=== PATIENT | female | born 1980 | race Caucasian/White ===

== ENCOUNTER 2016-12-10 18:08 | Emergency (ER) | payer OTHER ==
[~2016-12-10] VITALS: Ht 160 cm; Wt 117.5 kg
[~2016-12-10 18:08] MED LIST: AEROECLIPSE1 EACH MC; ATARAX,VISTARIL25 MG PO; ATARAX,VISTARIL50 MG PO; BUSPIRONE HCL15 MG PO; CEFDINIR300 MG PO; DESYREL100 MG PO; DOXEPIN HCL100 MG PO; EFFEXOR25 MG PO; LEXAPRO20 MG PO; LIDODERM 5% P1 PATCH TD; MYCOLOG OINTMEN15 GM TD; NICOTINE PATCH1 EAC1 TD; NOHOMEMEDS; PEN-VEE K,VEET500 MG PO; PERCOCET 5/31 TABLET PO; PREDNISONE20 MG PO; PREDNISONE50 MG PO; PROVENTIL,2.5 MG/3 M IH; SLEEPING PILL PO; SYMBICORT60 INHALAT IH; TYLENOL WITH C1 EACH PO; VENTOLIN HFA18 GM IH; VIBRAMYCIN100 MG PO; ZANTAC150 MG PO; ZOFRAN4 MG PO
[2016-12-10 20:18] VITALS: BP 144/115
== END 2016-12-10 20:19 | disposition home or self-care (01) ==
LOC: EME 18:08 → RME 18:08
PROC: 0HQ1XZZ Repair Face Skin, External Approach (ICD-10-PCS; principal; 2016-12-10)
PROC: 3E0234Z Introduction of Serum, Toxoid and Vaccine into Muscle, Percutaneous Approach (ICD-10-PCS; principal; 2016-12-10)
DX: S01.81XA Laceration without foreign body of other part of head, initial encounter (principal); S00.93XA Contusion of unspecified part of head, initial encounter; H11.31 Conjunctival hemorrhage, right eye; Y04.0XXA Assault by unarmed brawl or fight, initial encounter; Z23 Encounter for immunization; Z88.6 Allergy status to analgesic agent
CPT/HCPCS: 99281; 99284

== ENCOUNTER 2017-06-12 21:17 | Emergency (ER) | payer OTHER ==
[~2017-06-12] VITALS: Ht 160 cm; Wt 117.3 kg
[2017-06-12 21:59] LABS: EOSINOPHIL (%) 2.4 % (0-5); EOSINOPHIL COUNT 0.2 K/uL (0-0.3); IMMATURE GRANULOCYTE (%) 0.2 % (0.0-0.7); INSTRUMENT ABS NEUTROPHIL CT 5.2 K/uL; LYMPHOCYTE COUNT 2.4 K/uL (1.0-2.8); MCH 31.3 PG (29.0-34.0); MCHC 34.4 G/DL (30.0-36.0); MCV 90.9 FL (83-99); MEAN PLAT.VOLUME 9.7 uM^3 (9.5-12.4); MONOCYTE (%) 6.4 % (3-12); MONOCYTE COUNT 0.5 K/uL (0-0.8); NEUTROPHIL (%) 61.9 % (45-76); NEUTROPHIL COUNT 5.2 K/uL (1.8-6.4); PLATELET COUNT 198 K/uL (156-360); RBC DIS.WIDTH-CV 12.6 % (11.8-14.6); RBC DIS.WIDTH-SD 41.9 % (39-53); RED BLOOD COUNT 4.51 M/uL (3.80-5.20); WHITE BLOOD COUNT 8.4 K/uL (4.1-10.2)
[2017-06-12 22:07] LABS: CHLORIDE 106 mEq/L (99-109); POTASSIUM 4.3 mEq/L (3.7-5.4); SODIUM 140 mEq/L (136-147)
[2017-06-12 22:10] LABS: GLUCOSE 96 mg/dL (70-99)
[2017-06-12 22:11] LABS: ANION GAP 9 MEQ/L (2-14)
[2017-06-12 22:12] LABS: TOTAL BILIRUBIN 0.3 mg/dL (0.0-1.0)
[2017-06-12 22:13] LABS: ALKALINE PHOSPHATASE 58 IU/L (3-129)
[2017-06-12 22:14] LABS: GFR ESTIMATE (CALCULATED) > 59 mL/min/
[2017-06-12 22:15] LABS: DIRECT BILIRUBIN 0.1 mg/dL (0.0-0.3); UREA NITROGEN (BUN) 10 mg/dL (9-23)
[2017-06-12 22:17] LABS: LIPASE 27 U/L (1.0-51.0)
[2017-06-12 22:24] LABS: QUANTITATIVE HCG < 4.0 MIU/ML
[2017-06-12 22:26] LABS: ADD MIUA? YES; BILIRUBIN NEGATIVE; BLOOD MODERATE; COLOR YELLOW ((YELLOW)); GLUCOSE (STRIP) NEGATIVE; KETONES NEGATIVE; LEUKOCYTES SMALL; NITRITE NEGATIVE; PROTEIN (STRIP) 100; SPECIFIC GRAVITY 1.014 (1.000-1.030); UROBILINOGEN 0.2 MG/DL (0.2-1.0)
[2017-06-12 22:45] LABS: RED BLOOD CELLS 20-30 /HPF (0-5)
[2017-06-12 22:46] LABS: AMORPHOUS PHOSPHATE CRYSTALS 1+; BACTERIA RARE /HPF; CASTS NONE SEEN /LPF; CRYSTALS PRESENT; EPITHELIAL CELLS 1+ /HPF; MUCUS 1+ /LPF
[2017-06-12] MEDS ORDERED: ZOFRAN ODT4 MG PO (23:23)
[2017-06-12] MEDS ORDERED: BENTYL20 MG PO (23:31)
[2017-06-12 23:35] VITALS: BP 159/98
== END 2017-06-12 23:36 | disposition home or self-care (01) ==
LOC: EME 21:17
PROVIDERS: Physician Assistant
DX: K80.20 Calculus of gallbladder without cholecystitis without obstruction (principal); J45.909 Unspecified asthma, uncomplicated; F32.9 Major depressive disorder, single episode, unspecified; F17.200 Nicotine dependence, unspecified, uncomplicated; Z98.51 Tubal ligation status; Z88.6 Allergy status to analgesic agent
CPT/HCPCS: 76705; 80048; 80076; 81003; 83690; 84702; 85025; 99281; 99285; J1885; J2405; J3010; J7030

== ENCOUNTER 2018-05-26 10:41 | Emergency (ER) | payer OTHER ==
[~2018-05-26] VITALS: Ht 160 cm; Wt 124.0 kg
[~2018-05-26 10:41] MED LIST changes: +BENTYL20 MG PO; +EXCEDRIN EXTRA1 EACH PO; +ZOFRAN ODT4 MG PO; +[UNRECOGNIZED DRUG - SUPPLY]
[2018-05-26 11:27] LABS: HEMATOCRIT 39.1 % (36.0-46.0); HEMOGLOBIN 13.9 G/DL (11.9-15.5); MCH 33.1 PG (29.0-34.0); MCHC 35.5 G/DL (30.0-36.0); MCV 93.1 FL (83-99); PLATELET COUNT 209 K/uL (156-360); RBC DIS.WIDTH-CV 12.9 % (11.8-14.6); RBC DIS.WIDTH-SD 43.2 % (39-53); WHITE BLOOD COUNT 7.8 K/uL (4.1-10.2)
[2018-05-26 11:38] LABS: CHLORIDE 107 mEq/L (99-109); POTASSIUM 4.2 mEq/L (3.7-5.4); SODIUM 142 mEq/L (136-147)
[2018-05-26 11:40] LABS: GLUCOSE 104 mg/dL (70-99)
[2018-05-26 11:44] LABS: CREATININE 0.8 mg/dL (0.6-1.3); GFR ESTIMATE (CALCULATED) > 59 mL/min/
[2018-05-26 11:45] LABS: UREA NITROGEN (BUN) 12 mg/dL (9-23)
[2018-05-26 11:46] LABS: TROP-I INTERPRETATION NEGATIVE; TROPONIN-I < 0.01 ng/mL (0.0-0.30)
[2018-05-26] MEDS ORDERED: SYMBICORT60 INHALAT IH (12:04)
[2018-05-26] MEDS ORDERED: PROAIR HFA8.5 GM IH (12:04)
[2018-05-26] MEDS ORDERED: DELTASONE20 M1 PO (12:04)
[2018-05-26 12:40] VITALS: BP 180/111
== END 2018-05-26 12:41 | disposition home or self-care (01) ==
LOC: EME 10:41
DX: J44.1 Chronic obstructive pulmonary disease with (acute) exacerbation (principal); F17.200 Nicotine dependence, unspecified, uncomplicated
CPT/HCPCS: 71046; 80048; 84484; 85027; 93005; 94640; 99281; 99284